=== PATIENT | male | born 1950 | race Caucasian/White ===

== ENCOUNTER 2017-11-30 18:58 | Inpatient (IN) | payer MEDICARE ==
[2017-11-30 19:24] LABS: #Eosinphils 0.1 thou/uL (0.0-0.7); #Lymphocytes 1.9 thou/uL (1.20-3.40); #Monocytes 1.1 thou/uL (0.11-0.59); #Neutrophils 8.6 thou/uL (1.40-6.50); %Basophils 0.1 % (0.0-1.0); %Eosinophils 0.6 % (0.0-10.0); %Monocytes 9.3 % (0.0-10.0); Hemoglobin 12.8 g/dL (14.0-18.0); Mean Corpuscular HGB CONC 33.6 g/dL (32.0-36.0); Mean Corpuscular Hemoglobin 31.6 pg (27.0-31.0); Mean Corpuscular Volume 94.1 fl (80.0-94.0); Mean Platelet Volume 8.3 fL (7.4-10.4); Platelet Count 160 thou/uL (130-400); RBC Distribution Width 12.3 % (11.5-14.5); Red Blood Cell (RBC) Count 4.04 mill/uL (4.70-6.10); White Blood Cell (WBC) Count 11.6 thou/uL (4.8-10.8)
[2017-11-30 19:46] LABS: ALT (SGPT) 19 U/L (8-55); AST (SGOT) 18 U/L (5-34); Albumin 3.8 g/dL (3.4-4.8); Alkaline Phosphatase 87 U/L (40-150); Anion Gap 11 mmol/L (10-20); BUN (Urea Nitrogen) 35 mg/dL (8.4-25.7); Bilirubin, Total 0.4 mg/dL (0.2-1.2); Calc. Creatinine Clearance 0 mL/min (70-130); Calcium 8.5 mg/dL (7.8-10.44); Carbon Dioxide 25 mmol/L (23-31); Chloride 101 mmol/L (98-107); Estimated GFR-MDRD 36; Globulin 3.4 g/dL (2.4-3.5); Glucose 107 mg/dL (80-115); Potassium 3.5 mmol/L (3.5-5.1); Protein, Total 7.2 g/dL (5.8-8.1); Sodium 133 mmol/L (136-145)
[2017-11-30 20:04] LABS: Bilirubin Negative (Negative); Blood, Urine Negative (Negative); Clarity CLEAR (Clear); Glucose, Urine (Dipstick) 100 mg/dL (Negative); Leukocyte Negative (Negative); Nitrite Negative (Negative); Protein, Urine (Dipstick) 100 mg/dL (Neg-Trace); Specific Gravity, Urine 1.018 (1.002-1.036); pH, Urine 5.5 (5.0-9.0)
[2017-11-30 20:05] LABS: Bacteria/HPF None Seen HPF (None Seen); Hyaline Casts/LPF 0-3 HYALINE CAST LPF (0-3 Hyaline); Pathc Cast-AUWi Flag 0.27 (0-2.49); RBC/HPF 0-3 HPF (0-3); Squamous Epithelial None Seen HPF (0-3); WBC/HPF None Seen HPF (0-3)
--- NOTE | 2017-11-30 20:05 | RAD ---
PORTABLE CHEST: 11/30/17 HISTORY: Mental status change. No comparison. Cardiomegaly with postop sternotomy change. Lungs appear clear. No evidence of vascular congestion or infiltrate. No evidence of effusion. IMPRESSION: Mild cardiomegaly. No acute lung process. POS: [facility]
--- NOTE | 2017-11-30 21:21 | CT ---
CT HEAD WITHOUT CONTRAST: 11/30/17 Multiple axial tomograms obtained through the head without IV enhancement. HISTORY: Mental status change. Mild cortical volume loss. No evidence of infarct or mass. No evidence of hemorrhage. Sinuses and mas toids are aerated. IMPRESSION: No acute abnormality. POS: [facility]
[2017-11-30] MEDS ORDERED: Lorazepam 2 MG/ML VIAL ONE (22:10)
[2017-11-30] MEDS ORDERED: Piperacillin/Tazobactam 4.5 GM in Sodium Chloride 0.9% 100 ML IVPB SCH (22:45)
[2017-11-30 23:18] LABS: pH, Arterial 7.39 (7.35-7.45)
[2017-11-30 23:19] LABS: Actual Bicarbonate (HCO3a) 24.6 mEq/L (22-26); Base Excess (BEa) -0.3 mEq/L (0 (+/-) 2.5); CO2 Tension 41.2 mmHg (35.0-45.0); Hematocrit-ABG 32.8 % (42.0-52.0); Hemoglobin (Hb) 10.3 g/dL (14.0-18.0); O2 Tension (PaO2) 59.4 mmHg (80.0-100.0)
[2017-11-30 23:20] LABS: Analyzer IN Cardio ER; Calcium, Ionized 1.1 mmol/L (1.12-1.30); Puncture Site RBA
[2017-12-01 00:08] LABS: Troponin I 0.032 ng/mL (< 0.028)
[2017-12-01 00:13] VITALS: BMI 30.3
[2017-12-01] MEDS ORDERED: Acetaminophen 325 MG TAB PO PRN (00:24)
[2017-12-01] MEDS ORDERED: Nitroglycerin 0.4 MG TAB 1 EACH SL PRN (04:25)
[2017-12-01 05:36] LABS: Troponin I 0.183 ng/mL (< 0.028)
[2017-12-01] MEDS: Piperacillin/Tazobactam 3.375 GM in Sodium Chloride 0.9% 100 ML IVPB SCH ×2 (05:52→12:35)
[2017-12-01] MEDS ORDERED: Piperacillin/Tazobactam 4.5 GM in Sodium Chloride 0.9% 100 ML IVPB SCH (06:00)
[2017-12-01 06:29] LABS: #Eosinphils 0.1 thou/uL (0.0-0.7); #Lymphocytes 1.2 thou/uL (1.20-3.40); #Monocytes 0.8 thou/uL (0.11-0.59); #Neutrophils 5.6 thou/uL (1.40-6.50); %Basophils 0.6 % (0.0-1.0); %Eosinophils 0.7 % (0.0-10.0); %Lymphocytes 15.7 % (21.0-51.0); %Monocytes 10.4 % (0.0-10.0); %Neutrophils 72.6 % (42.0-75.0); Hemoglobin 11.1 g/dL (14.0-18.0); Mean Corpuscular HGB CONC 33.2 g/dL (32.0-36.0); Mean Corpuscular Hemoglobin 31.5 pg (27.0-31.0); Mean Corpuscular Volume 94.9 fl (80.0-94.0); Mean Platelet Volume 8.9 fL (7.4-10.4); Platelet Count 145 thou/uL (130-400); RBC Distribution Width 12.2 % (11.5-14.5); Red Blood Cell (RBC) Count 3.51 mill/uL (4.70-6.10); White Blood Cell (WBC) Count 7.8 thou/uL (4.8-10.8)
[2017-12-01] MEDS: Sodium Chloride 0.9% 1,000 ML IV SCH (06:44)
[2017-12-01 06:53] LABS: ALT (SGPT) 14 U/L (8-55); AST (SGOT) 17 U/L (5-34); Albumin 3.3 g/dL (3.4-4.8); Alkaline Phosphatase 71 U/L (40-150); Anion Gap 12 mmol/L (10-20); BUN (Urea Nitrogen) 33 mg/dL (8.4-25.7); Bilirubin, Total 0.3 mg/dL (0.2-1.2); Calc. Creatinine Clearance 52 mL/min (70-130); Calcium 8.1 mg/dL (7.8-10.44); Carbon Dioxide 26 mmol/L (23-31); Chloride 105 mmol/L (98-107); Estimated GFR-MDRD 36; Globulin 2.9 g/dL (2.4-3.5); Glucose 82 mg/dL (80-115); Potassium 3.4 mmol/L (3.5-5.1); Protein, Total 6.2 g/dL (5.8-8.1); Sodium 140 mmol/L (136-145)
--- NOTE | 2017-12-01 07:34 | HP ---
PRIMARY CARE PHYSICIAN: [facility]. PRESENTING COMPLAINT: Altered mental state. HISTORY OF PRESENT ILLNESS: This is a 67-year-old male with a history of shortness of breath (COPD n ot formally diagnosed), type 2 diabetes mellitus, CAD and PVD, who was brought to the emergency room due to an altered mental state. Family reports that he has had cold and flu-like symptoms for the week and he went to the [facility] yesterday where they state a flu test was not done, but he was given some nausea medication and sent home. Later yesterday, he became more confused, had some diffi culty walking and getting out of bed. This got worse today and so he was brought to the emergency ro om. He has complained of shortness of breath, but there was no associated chest pain. He also had s ome cough, unclear if productive sputum along with fever and nausea as well as vomiting and wheezing. History is limited due to patient's altered mental state. PAST MEDICAL HISTORY: Chronic shortness of breath on inhalers at home p.r.n., diabetes mellitus, CAD , PVD. PAST SURGICAL HISTORY: Appendectomy, CABG, cholecystectomy, surgery on his bilateral carotids and bi lateral great toe amputation. FAMILY HISTORY: Reviewed and noncontributory. SOCIAL HISTORY: Former smoker, quit about 3 years ago. Does not do drugs or drink alcohol. ALLERGIES: AMBIEN. REVIEW OF SYSTEMS: Unable to review due to the patient's altered mental state. PHYSICAL EXAMINATION: VITAL SIGNS: Temperature 98.9, pulse 86, respiration rate 20, oxygen saturation 94% on 2 liters of o xygen by nasal cannula, blood pressure 118/65. GENERAL: Febrile (ear temperature 101.9), tachycardic and tachypneic on arrival at the ER, his oxyge n saturation was 98% on nonrebreather. He is lethargic, responsive to some verbal stimuli, but not o riented to time or place. HEENT: Atraumatic, normocephalic. Not pale, anicteric. PERRLA. Dry mucosa. NECK: Supple, full range of movements. RESPIRATORY: Diffuse rhonchi, occasional wheezing, no crackles. CARDIOVASCULAR: Slight tachycardia with regular rhythm. S1 and S2 only. No murmurs, rubs or gallop s. ABDOMEN: Bowel sounds positive, nontender, nondistended, no organomegaly. MUSCULOSKELETAL: Amputation of two great toes. No other skeletal abnormalities noted. SKIN: Warm, dry, well-perfused. EXTREMITIES: Pulses 1+ bilateral lower extremities. NEUROLOGIC: Unable to cooperate with exam, but patient is oriented to person. PSYCHIATRIC: Oriented to person only. LABORATORY DATA: WBC 11.6, hemoglobin 12.8, platelet count 160. ESR 36. D-dimer 1.41. Blood gas o n 2 liters nasal cannula, pH 7.39, pCO2 of 41, pO2 59. Sodium 133, potassium 3.5, BUN 35, creatinine 1.88, lactic acid 1.7. Troponin ranged between 0.032 and 0.183. IMAGING: Chest x-ray, mild cardiomegaly with no acute lung process. Brain CT, no acute abnormalitie s. ASSESSMENT AND PLAN: 1. Acute encephalopathy. At this point, etiology is unclear. He had upper respiratory symptoms and flu-like symptoms for a few days and had confusion for the past day or so. Blood cultures have been taken and he has been started on broad spectrum antibiotics as a precaution. We will follow up bloo d cultures. If further investigations are negative, he may require an MRI brain and a neurology cons ult. 2. Hypoxia/acute respiratory failure, which I pursue. The patient likely has undiagnosed chronic ob structive pulmonary disease. He might be undergoing mild exacerbation. He has been started on nebul izer therapy. D-dimer is elevated, which could be due to infection or an active pulmonary embolism, so we will pursue a VQ scan. 3. Acute kidney injury, unclear whether this is an chronic kidney disease or pure acute kidney injur y as the patient's baseline renal function is unknown. We will hydrate gently and hold lisinopril an d chlorthalidone. 4. Diabetes mellitus type 2. We will place on sliding scale insulin, hyperglycemia protocol and agustín betic diet if able to tolerate p.o. 5. Coronary artery disease. His troponin is trending up, so we will continue to trend and get Cardi ology input. We will also get EKG p.r.n. as well as a BNP. 6. Elevated troponin, could be due to type 2 non-ST elevation myocardial infarction from demand isch emia, but we will trend and get Cardiology input. 7. Peripheral vascular disease. Continue aspirin. Continue home medications. 8. Hypertension. We will continue atenolol and amlodipine. We will hold lisinopril and chlorthalid one.
[2017-12-01] MEDS ORDERED: Lisinopril 20 MG TAB PO SCH (09:00)
[2017-12-01] MEDS ORDERED: Chlorthalidone 25 MG TAB PO SCH (09:00)
[2017-12-01] MEDS: Ferrous Sulfate 325 MG TAB PO SCH ×3 (10:05→17:40)
[2017-12-01] MEDS: Aspirin 325 MG TAB PO SCH (10:05)
[2017-12-01] MEDS: Atenolol 25 MG TAB PO SCH ×2 (10:06→20:57)
[2017-12-01] MEDS: Amlodipine 10 MG TAB PO SCH (10:06)
[2017-12-01] MEDS: Bupropion 150 MG SR TAB PO SCH ×2 (10:07→17:40)
--- NOTE | 2017-12-01 14:23 | PDOC.PN ---
- Subjective Encounter Start Date: 12/01/17 Encounter Start Time: 13:00 Patient is renetta today, Alert now and oriented. he was very confused and Weak with slurred speech according to . he is more Clear now, c/o cough and congestion. - Objective Resuscitation Status: Resuscitation Status FULL:Full Resuscitation MAR Reviewed: Yes Vital Signs & Weight: Vital Signs (12 hours) Temp Pulse Resp BP BP Pulse Ox 12/01/17 10:06 81 150/66 H 12/01/17 09:53 81 20 90 L 12/01/17 08:00 99.1 F 81 18 150/66 H 92 L 12/01/17 06:18 82 22 H 90 L 12/01/17 05:03 99.0 F 82 16 137/64 99 12/01/17 02:23 85 22 H 86 L Weight Weight 211 lb 4.8 oz I&O: 11/30/17 12/01/17 12/02/17 06:59 06:59 06:59 Intake Total 120 Output Total 700 525 Balance -700 -405 Result Diagrams: 12/01/17 04:58 12/01/17 04:58 Additional Labs: Accuchecks 12/01/17 12:12 POC Glucose 119 H Radiology Reviewed by me: Yes EKG Reviewed by me: Yes Phys Exam - Physical Examination HEENT: PERRLA, moist MMs Neck: no nodes, no JVD Respiratory: no wheezing, no rales Cardiovascular: RRR, no significant murmur Gastrointestinal: soft, non-tender Musculoskeletal: pulses present, edema present Neurological: non-focal, normal sensation Psychiatric: normal affect, A&O x 3 Skin: no rash, normal turgor Dx/Plan (1) NSTEMI (non-ST elevated myocardial infarction) Code(s): I21.4 - NON-ST ELEVATION (NSTEMI) MYOCARDIAL INFARCTION Status: Acute Comment: PT has jump in his trop leevl, no chest pain, Will continue with lovenox and BB, do a Stat Echo to look for Wall motion. Consulted Cardiology. (2) Acute respiratory failure with hypoxia Code(s): J96.01 - ACUTE RESPIRATORY FAILURE WITH HYPOXIA Status: Acute Comment: Persisantly SOB with Hypoxia, Will continue with Neb treatments, V/q scan is pending, need to r/o PE. Pt is on lovenox 1mg/kg BID. Will continue on IV levofloxacin for possible COPD undiagnosed, continue Nebs. (3) Acute encephalopathy Code(s): G93.40 - ENCEPHALOPATHY, UNSPECIFIED Status: Acute Comment: Resolved now. likely TIA or delirium from [place]. (4) TIA (transient ischemic attack) Status: Acute Comment: Waiting on MRI scan, pt has clear signs of Neuro dfeicitis, Will do ischemic work up and Consult neurology if posiitve,. Will continue on Aspirn, Statin. (5) THI (acute kidney injury) Code(s): N17.9 - ACUTE KIDNEY FAILURE, UNSPECIFIED Status: Acute Comment: Mild renal dysfucntion, continue to Monitor, avoid nephro toxic meds. (6) CAD (coronary artery disease) Code(s): I25.10 - ATHSCL HEART DISEASE OF [place] CORONARY ARTERY W/O ANG PCTRS Status: Acute Comment: Continue Aspirin/ BB, Statin. consult Cardiology. - Plan cont current plan of care, plan discussed w/ family, continue antibiotics, PT/OT , speech therapy, respiratory therapy, incentive spirometry, DVT proph w/lovenox * . - Discharge Day Encounter end time: 13:40 Review of Systems - Review of Systems Constitutional: weakness, malaise. negative: fever, chills, sweats, other Eyes: negative: Pain, Vision Change, Conjunctivae Inflammation, Eyelid Inflammation, Redness, Other ENT: negative: Ear Pain, Ear Discharge, Nose Pain, Nose Discharge, Nose Congestion, Mouth Pain, Mouth Swelling, Throat Pain, Throat Swelling, Other Respiratory: Cough, Shortness of Breath, SOB with Excertion. negative: Dry, Hemoptysis, Pleuritic Pain, Sputum, Wheezing Cardiovascular: edema. negative: chest pain, palpitations, orthopnea, paroxysmal nocturnal dyspnea, light headedness, other Gastrointestinal: negative: Nausea, Vomiting, Abdominal Pain, Diarrhea, Constipation, Melena, Hematochezia, Other Genitourinary: negative: Dysuria, Frequency, Incontinence, Hematuria, Retention , Other Musculoskeletal: negative: Neck Pain, Shoulder Pain, Arm Pain, Back Pain, Hand Pain, Leg Pain, Foot Pain, Other - Medications/Allergies Allergies/Adverse Reactions: Allergies Allergy/AdvReac Type Severity Reaction Status Date / Time zolpidem [From Ambien] Allergy Verified 12/01/17 00:20 Medications: Current Medications Amlodipine Besylate (Norvasc) 5 mg PO DAILY [facility] Last Admin: 12/01/17 10:06 Dose: 5 mg Aspirin (Aspirin) 325 mg PO DAILY [facility] Last Admin: 12/01/17 10:05 Dose: 325 mg Atenolol (Tenormin) 50 mg PO BID [facility] Last Admin: 12/01/17 10:06 Dose: 50 mg Atorvastatin Calcium (Lipitor) 40 mg PO [facility] Bupropion HCl (Wellbutrin Sr) 150 mg PO BID-[facility] Last Admin: 12/01/17 10:07 Dose: 150 mg Cholecalciferol (Vitamin D3) 2,000 units PO DAILY [facility] Last Admin: 12/01/17 10:07 Dose: 2,000 units Ferrous Sulfate (Feosol) 325 mg PO TID-[facility] Last Admin: 12/01/17 12:31 Dose: 325 mg Vancomycin HCl 1.75 gm/ Sodium (Chloride) 500 mls @ 250 mls/hr IVPB Q24HR@2100 [facility] Piperacillin Sod/Tazobactam (Sod 3.375 gm/ Sodium Chloride) 100 mls @ 200 mls/ hr IVPB Q6HR [facility] Last Admin: 12/01/17 12:35 Dose: 100 mls Sodium Chloride (Normal Saline 0.9%) 1,000 mls @ 75 mls/hr IV .[id number] [facility] Last Admin: 12/01/17 06:44 Dose: 1,000 mls Influenza Virus Vaccine (Fluzone High-Dose Syr) 0.5 ml IM .ONCE ONE Stop: 12/02/17 09:01 Nitroglycerin (Nitrostat) 0.4 mg SL Q5MIN PRN PRN Reason: Chest Pain Pneumococcal 13-Valent Conj Vacc (Prevnar) 0.5 ml IM .ONCE ONE Stop: 12/02/17 09:01 Sodium Chloride (Flush - Normal Saline) 10 ml IVF Q12HR [facility] Last Admin: 12/01/17 10:08 Dose: Not Given Sodium Chloride (Flush - Normal Saline) 10 ml IVF PRN PRN PRN Reason: Saline Flush
--- NOTE | 2017-12-01 16:28 | NM ---
VQ SCAN: Date: 12/01/17 HISTORY: Hypoxia, elevated D-Dimer. TECHNIQUE: A perfusion only scan was performed following the intravenous administration of 5.6 mCi technetium-99 m MAA. Xenon inhalation was attempted twice, but the patient was unable to follow instructions and wa s unable to take a deep breath both times. FINDINGS: Correlation is made with the chest radiograph of the previous evening. Homogeneous tracer distribution is seen in the lungs bilaterally without pleural based segmental or s ubsegmental defects. IMPRESSION: Normal radionuclide perfusion scan. No evidence of pulmonary embolism. POS: [facility]
[2017-12-01] MEDS ORDERED: Potassium Chloride 20 MEQ TAB PO SCH (17:15)
--- NOTE | 2017-12-01 17:55 | ULT ---
CAROTID DOPPLER: Date: 12/01/17 Ultrasound Doppler study is performed of the extracranial carotid arteries. Color Doppler with spectr al analysis and velocity recordings obtained. HISTORY: Dizziness. Neuro deficits. FINDINGS: Ultrasound images show intimal thickening and scattered echogenic plaque throughout both systems. Velocities are increased in the right internal carotid artery recorded at 131 cm/second systolic. Thi s indicates hemodynamically significant stenosis in the 50-60% range. Velocities in the left internal carotid artery are upper normal and recorded at 112 cm/second. Vertebrals show antegrade flow. IMPRESSION: 1. Moderate echogenic plaque bilaterally. 2. Evidence of hemodynamically significant stenosis in the right internal carotid artery. POS: [facility]
--- NOTE | 2017-12-01 19:50 | CON ---
DATE OF CONSULTATION: 12/01/2017 REASON FOR CONSULTATION: Indeterminate troponin levels in the setting of fever. HISTORY OF PRESENT ILLNESS: Mr. Sage Her is a very pleasant 67-year-old gentleman, who was br ought to the hospital after his found him to be progressively feeling more, more weak and then d isoriented. He had cold and flu-like symptoms for the past week prior to the admission. A flu test was done here, which was negative. He had confusion and disorientation. He is brought to the [facility] for evaluation. PAST MEDICAL HISTORY: 1. Diabetes. 2. Coronary artery disease. 3. Peripheral vascular disease. PAST SURGICAL HISTORY: 1. He said he had bypass surgery x2 in [place] in [place]. He thinks 22 years ago, it sounds like he may have had internal mammary artery grafting as well as one vein graft. 2. Cholecystectomy. 3. 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 4. History of femoral popliteal bypass on the left, he thinks about 2 years ago. 5. History of bilateral carotid arterial surgery. FAMILY HISTORY: Negative for heart disease at a young age. SOCIAL HISTORY: Former smoker, quit about 3 years ago. No drugs or alcohol. ALLERGIES: Allergic to AMBIEN. REVIEW OF SYSTEMS: Constitutional: No significant weight gain or loss. Vision: No changes. Heari ng: No changes. Pulmonary: No cough or wheezing. Gastrointestinal: No nausea, vomiting, or diarr hea. Skin: No rashes. Neurologic: No unilateral weakness or numbness. Psychiatric: No unusual d epression or anxiety. Hematologic: No unusual bruising. Genitourinary: No burning with urination. Vascular: He does have calf claudication bilaterally, especially the right side. MEDICATIONS: At home included: 1. Albuterol. 2. Amlodipine. 3. Aspirin. 4. Atenolol. 5. Atorvastatin. 6. Chlorthalidone. 7. Iron. 8. Insulin 80 units in the morning and 22 units in the evening. 9. Lisinopril. The patient's does indicate that the patient has been taking occasional nitroglycerin to relieve chest pain. Medication here, the patient is on enoxaparin 100 mg twice a day. He is still on atorvastatin, still on amlodipine, and lisinopril dose has been reduced. PHYSICAL EXAMINATION: GENERAL: A pleasant elderly gentleman. VITAL SIGNS: Blood pressure 150/66, pulse 81 and regular. HEENT: Eyes: Sclerae nonicteric. Mouth: Mucous membranes moist. NECK: Supple, no lymphadenopathy. LUNGS: Clear. No wheezing, rales or rhonchi. CARDIAC: Normal S1, normal S2. There is no murmur, rub or gallop. ABDOMEN: Soft, nontender, no hepatosplenomegaly. EXTREMITIES: Warm and dry. No clubbing, cyanosis or edema. VASCULAR: Peripheral pulses palpable, but somewhat diminished right femoral pulse. I do feel poplit eal pulses or pedal pulses on either side. PERTINENT LABORATORY AND X-RAY FINDINGS: His creatinine is 1.88, estimated GFR is 36, and potassium is 3.4. EKG: Sinus rhythm, some mild 0.[address] depression in V4 and V5 on admission that is with a sinus tac hycardia, heart rate of 111. Echocardiogram: Ejection fraction is about 55%, although somewhat technically difficult. ASSESSMENT: 1. Fever and sepsis pattern, although blood cultures are fortunately negative. This seems to be imp roving. 2. Increased troponin level, probably demand ischemia. 3. Underlying coronary artery disease. 4. Stage 3 renal failure. 5. Hypertension. 6. Hypercholesterolemia. 7. Peripheral vascular disease. PLAN: 1. We will go ahead and reduce enoxaparin, it looks like demand ischemia. 2. Continue aspirin and statins. 3. We would like the patient to be able to recover. Ultimately, he will likely need to come back fo r a cardiac catheterization in view of the recent onset of angina with a history of bypass surgery so many years ago. 4. We will give additional potassium tomorrow.
[2017-12-01] MEDS: Atorvastatin Calcium 40 MG TAB PO SCH (20:57)
[2017-12-01] MEDS: Benzonatate 100 MG CAP PO PRN (20:58)
[2017-12-01] MEDS ORDERED: Vancomycin HCl 1.75 GM in Sodium Chloride 0.9% 500 ML IVPB SCH (21:00)
[2017-12-01] MEDS ORDERED: Enoxaparin Sodium 100 MG/ML SYRINGE SC SCH (21:00)
[2017-12-01] MEDS ORDERED: Dextrose 50% Abboject 50 ML SYRINGE IVP PRN (21:10)
[2017-12-01] MEDS ORDERED: Dextrose 5% in Water 1,000 ML IV PRN (21:10)
[2017-12-01] MEDS ORDERED: Insulin Detemir 100 UNITS/ML 35 UNITS in Pre-Filled Syringe 1 EACH SC SCH (21:15)
[2017-12-02] MEDS: Sodium Chloride 0.9% 1,000 ML IV SCH ×3 (00:03→22:14)
[2017-12-02] MEDS: Benzonatate 100 MG CAP PO PRN ×2 (06:24→22:11)
[2017-12-02] MEDS ORDERED: Prevnar 13-Val Conj/PF 0.5 ML SYRINGE IM ONE (09:00)
[2017-12-02] MEDS ORDERED: FLU VACC TS2017-18 (>65YR) 0.5 ML SYRINGE IM ONE (09:00)
[2017-12-02] MEDS ORDERED: Potassium Chloride 20 MEQ TAB PO SCH (09:00)
[2017-12-02] MEDS: Atenolol 25 MG TAB PO SCH ×2 (09:51→20:41)
[2017-12-02] MEDS: Amlodipine 10 MG TAB PO SCH (09:52)
[2017-12-02] MEDS: Ferrous Sulfate 325 MG TAB PO SCH ×3 (09:52→17:08)
[2017-12-02] MEDS: Lisinopril 5 MG TAB PO SCH (09:53)
[2017-12-02] MEDS: Aspirin 325 MG TAB PO SCH (09:54)
[2017-12-02] MEDS: Enoxaparin Sodium 40 MG/0.4 ML SYRINGE SC SCH ×2 (09:55→20:42)
[2017-12-02] MEDS: Bupropion 150 MG SR TAB PO SCH ×2 (11:46→17:08)
--- NOTE | 2017-12-02 12:57 | PDOC.PN ---
- Subjective Encounter Start Date: 12/02/17 Encounter Start Time: 10:15 Patient is seen today, alert and oriented. He feels much better, he has Right internal carotid artery significant stenosis, but had h/o bilateral End arterectomy. Waiitng on MRI. - Objective Resuscitation Status: Resuscitation Status FULL:Full Resuscitation MAR Reviewed: Yes Vital Signs & Weight: Vital Signs (12 hours) Temp Pulse Resp BP BP Pulse Ox 12/02/17 12:05 98.4 F 68 16 150/68 H 94 L 12/02/17 09:53 72 130/62 12/02/17 09:52 72 12/02/17 09:51 72 130/62 12/02/17 08:27 98.7 F 72 18 130/62 95 12/02/17 08:00 98.4 F 68 16 95 12/02/17 05:13 97.9 F 71 20 148/61 H 94 L 12/02/17 04:37 91 L Weight Admit Weight 211 lb 4.8 oz Weight 211 lb 4.8 oz I&O: 12/01/17 12/02/17 12/03/17 06:59 06:59 06:59 Intake Total 2054 Output Total 700 525 Balance -700 1530 Result Diagrams: 12/01/17 04:58 12/01/17 04:58 Additional Labs: Accuchecks 12/02/17 12/02/17 12/01/17 11:06 04:34 19:49 POC Glucose 134 H 110 271 H 12/01/17 17:22 POC Glucose 172 H Radiology Reviewed by me: Yes Phys Exam - Physical Examination HEENT: PERRLA, moist MMs Neck: no nodes, no JVD Respiratory: no wheezing, no rales Cardiovascular: RRR, no significant murmur Gastrointestinal: soft, non-tender Musculoskeletal: no edema, pulses present Neurological: non-focal, normal sensation Lymphatic: no nodes Psychiatric: normal affect, A&O x 3 Dx/Plan (1) NSTEMI (non-ST elevated myocardial infarction) Code(s): I21.4 - NON-ST ELEVATION (NSTEMI) MYOCARDIAL INFARCTION Status: Acute Comment: PT has jump in his trop leevl, no chest pain, Will continue with lovenox and BB, Echo is reviewed by cardiology, Looks ok. plan for cardiac Cath later as outpaitent from Cardiology offoce (2) Acute respiratory failure with hypoxia Code(s): J96.01 - ACUTE RESPIRATORY FAILURE WITH HYPOXIA Status: Acute Comment: Persisantly SOB with Hypoxia, Will continue with Neb treatments, V/q scan cancelled for some reason., need to r/o PE. Pt is on lovenox 1mg/kg BID. Will continue on IV levofloxacin for possible COPD undiagnosed, continue Nebs. will wean him off of oxygen today. (3) Acute encephalopathy Code(s): G93.40 - ENCEPHALOPATHY, UNSPECIFIED Status: Acute Comment: Resolved now. likely TIA or delirium from [place]. (4) TIA (transient ischemic attack) Status: Acute Qualifiers: Transient cerebral ischemia type: multiple and bilateral precerebral artery syndromes Qualified Code(s): G45.2 - Multiple and bilateral precerebral artery syndromes Comment: Waiting on MRI scan, pt has clear signs of Neuro dfeicitis, US carotid showed significant stenosis right internal carotid, H/o Carotid Endarterectomy. (5) THI (acute kidney injury) Code(s): N17.9 - ACUTE KIDNEY FAILURE, UNSPECIFIED Status: Acute Comment: Mild renal dysfucntion, continue to Monitor, avoid nephro toxic meds. (6) CAD (coronary artery disease) Code(s): I25.10 - ATHSCL HEART DISEASE OF [place] CORONARY ARTERY W/O ANG PCTRS Status: Acute Comment: Continue Aspirin/ BB, Statin. consult Cardiology. - Plan cont current plan of care, plan discussed w/ family, PT/OT, oncology social work, respiratory therapy, incentive spirometry, out of bed/ambulate, DVT proph w/ lovenox * . - Discharge Day Encounter end time: 10:45 Review of Systems - Review of Systems Eyes: negative: Pain, Vision Change, Conjunctivae Inflammation, Eyelid Inflammation, Redness, Other ENT: negative: Ear Pain, Ear Discharge, Nose Pain, Nose Discharge, Nose Congestion, Mouth Pain, Mouth Swelling, Throat Pain, Throat Swelling, Other Respiratory: negative: Cough, Dry, Shortness of Breath, Hemoptysis, SOB with Excertion, Pleuritic Pain, Sputum, Wheezing Cardiovascular: negative: chest pain, palpitations, orthopnea, paroxysmal nocturnal dyspnea, edema, light headedness, other Gastrointestinal: negative: Nausea, Vomiting, Abdominal Pain, Diarrhea, Constipation, Melena, Hematochezia, Other Genitourinary: negative: Dysuria, Frequency, Incontinence, Hematuria, Retention , Other Musculoskeletal: negative: Neck Pain, Shoulder Pain, Arm Pain, Back Pain, Hand Pain, Leg Pain, Foot Pain, Other Skin: negative: Rash, Lesions, Al, Bruising, Other - Medications/Allergies Allergies/Adverse Reactions: Allergies Allergy/AdvReac Type Severity Reaction Status Date / Time zolpidem [From Ambien] Allergy Verified 12/01/17 00:20 Medications: Current Medications Amlodipine Besylate (Norvasc) 5 mg PO DAILY [facility] Last Admin: 12/02/17 09:52 Dose: 5 mg Aspirin (Aspirin) 325 mg PO DAILY [facility] Last Admin: 12/02/17 09:54 Dose: 325 mg Atenolol (Tenormin) 50 mg PO BID [facility] Last Admin: 12/02/17 09:51 Dose: 50 mg Atorvastatin Calcium (Lipitor) 40 mg PO HS [facility] Last Admin: 12/01/17 20:57 Dose: 40 mg Benzonatate (Tessalon) 100 mg PO TIDPRN PRN PRN Reason: Cough Last Admin: 12/02/17 06:24 Dose: 100 mg Bupropion HCl (Wellbutrin Sr) 150 mg PO BID-[facility] Last Admin: 12/02/17 11:46 Dose: 150 mg Cholecalciferol (Vitamin D3) 2,000 units PO DAILY [facility] Last Admin: 12/02/17 09:53 Dose: 2,000 units Dextrose/Water (Dextrose 50%) 25 gm IVP PRN PRN PRN Reason: HYPOGLYCEMIA PROTOCOL Enoxaparin Sodium (Lovenox) 40 mg SC 0900,2100 [facility] Last Admin: 12/02/17 09:55 Dose: 40 mg Ferrous Sulfate (Feosol) 325 mg PO TID-[facility] Last Admin: 12/02/17 11:45 Dose: 325 mg Glucagon (Glucagon) 1 mg IM PRN PRN PRN Reason: HYPOGLYCEMIA PROTOCOL Sodium Chloride (Normal Saline 0.9%) 1,000 mls @ 75 mls/hr IV .[id number] [facility] Last Admin: 12/02/17 00:03 Dose: 1,000 mls Levofloxacin 500 mg/ Device 100 mls @ 100 mls/hr IVPB 1600 [facility] Last Admin: 12/01/17 15:22 Dose: 100 mls Dextrose/Water (D5w) 1,000 mls @ 0 mls/hr IV INF PRN; As Directed PRN Reason: HYPOGLYCEMIA PROTOCOL Insulin Human Regular (Humulin R) 0 units SC .MILD SLIDING PRN; Protocol PRN Reason: MILD SLIDING SCALE Lisinopril (Zestril) 5 mg PO DAILY [facility] Last Admin: 12/02/17 09:53 Dose: 5 mg Nitroglycerin (Nitrostat) 0.4 mg SL Q5MIN PRN PRN Reason: Chest Pain Sodium Chloride (Flush - Normal Saline) 10 ml IVF Q12HR [facility] Last Admin: 12/02/17 09:56 Dose: Not Given Sodium Chloride (Flush - Normal Saline) 10 ml IVF PRN PRN PRN Reason: Saline Flush
[2017-12-02 14:06] LABS: Cardiac Risk 4.9 (Less than 4.5)
--- NOTE | 2017-12-02 15:08 | MRI ---
MRI BRAIN WITHOUT CONTRAST: Date: 12/02/17 HISTORY: Mental status change. COMPARISON: CT brain dated 11/30/17. FINDINGS: There is no acute territorial infarct or hemorrhage. On the diffusion-weighted imaging sequence, ther e are no abnormal areas of diffusion restriction. This is confirmed on the ADC map. On the susceptibility weighted imaging sequence, there is a single focal abnormal area of signal with in the left temporal white matter which may be from an old infarction or old hemorrhage. [place] have normal flow-voids. Mild mucosal thickening of the ethmoids and the fluids i n the right maxillary sinus. There is moderate atrophy. Moderate microvascular ischemic changes. Gliosis of the right post central gyrus. IMPRESSION: 1. No acute infarct or hemorrhage. 2. Extensive microvascular ischemic changes and moderate atrophy. 3. Mild mucosal sinus disease. POS: [facility]
[2017-12-02] MEDS: Insulin Regular 300 UNITS/3 ML VIAL SC PRN (17:06)
[2017-12-02] MEDS: Atorvastatin Calcium 40 MG TAB PO SCH (20:41)
[2017-12-03] MEDS: Sodium Chloride 0.9% 1,000 ML IV SCH (05:07)
[2017-12-03] MEDS: Insulin Regular 300 UNITS/3 ML VIAL SC PRN ×4 (05:08→20:13)
[2017-12-03] MEDS: Aspirin 325 MG TAB PO SCH (08:33)
[2017-12-03] MEDS: Ferrous Sulfate 325 MG TAB PO SCH ×3 (08:33→17:53)
[2017-12-03] MEDS: Bupropion 150 MG SR TAB PO SCH ×2 (08:34→17:53)
[2017-12-03] MEDS: Amlodipine 10 MG TAB PO SCH (08:34)
[2017-12-03] MEDS: Atenolol 25 MG TAB PO SCH ×2 (08:34→20:13)
[2017-12-03] MEDS: Lisinopril 5 MG TAB PO SCH (08:37)
[2017-12-03] MEDS: Enoxaparin Sodium 40 MG/0.4 ML SYRINGE SC SCH ×2 (08:38→20:12)
[2017-12-03] MEDS: Diabetic Tussin 200 MG/10 ML UDCUP PO PRN ×3 (12:16→21:50)
--- NOTE | 2017-12-03 14:23 | PDOC.PN ---
- Subjective Encounter Start Date: 12/03/17 Encounter Start Time: 14:23 Subjective: nsg notes rev, rosey ovn, no new c/o @ bedside -: no active SOB while at rest, no O2 use at home - Objective Resuscitation Status: Resuscitation Status FULL:Full Resuscitation Vital Signs & Weight: Vital Signs (12 hours) Temp Pulse Resp BP BP Pulse Ox 12/03/17 08:37 73 137/61 12/03/17 08:34 73 137/61 12/03/17 08:00 99.0 F 73 18 12/03/17 07:54 99.0 F 73 18 137/61 92 L Weight Admit Weight 211 lb 4.8 oz Weight 211 lb 4.8 oz I&O: 12/02/17 12/03/17 12/04/17 06:59 06:59 06:59 Intake Total 2055 Output Total 525 Balance 1530 Result Diagrams: 12/03/17 14:33 12/03/17 14:33 Additional Labs: Accuchecks 12/03/17 12/03/17 12/02/17 11:15 05:02 20:04 POC Glucose 227 H 171 H 306 H 12/02/17 16:47 POC Glucose 191 H Phys Exam - Physical Examination Constitutional: NAD HEENT: PERRLA, sclera anicteric slightly dry mm Respiratory: no wheezing, no rales, no rhonchi, clear to auscultation bilateral diminished throughout Cardiovascular: RRR, no significant murmur, no rub Gastrointestinal: soft, positive bowel sounds Musculoskeletal: no edema, pulses present Neurological: moves all 4 limbs Psychiatric: normal affect Dx/Plan (1) Acute encephalopathy Code(s): G93.40 - ENCEPHALOPATHY, UNSPECIFIED Status: Acute Comment: Resolved now. likely TIA or delirium from [place]. (2) Acute respiratory failure with hypoxia Code(s): J96.01 - ACUTE RESPIRATORY FAILURE WITH HYPOXIA Status: Acute Comment: Persisantly SOB with Hypoxia, Will continue with Neb treatments, V/q scan neg PE - dec lovenox to dvt ppx dosing. Will continue on IV levofloxacin for possible COPD undiagnosed, continue Nebs. continue weaning off oxygen - Plan * concern for possible COPD exac/ bronchitis * elevated troponin, demand ischemia * R IC Review of Systems - Medications/Allergies Allergies/Adverse Reactions: Allergies Allergy/AdvReac Type Severity Reaction Status Date / Time zolpidem [From Ambien] Allergy Verified 12/01/17 00:20 Medications: Current Medications Amlodipine Besylate (Norvasc) 5 mg PO DAILY [facility] Last Admin: 12/03/17 08:34 Dose: 5 mg Aspirin (Aspirin) 325 mg PO DAILY [facility] Last Admin: 12/03/17 08:33 Dose: 325 mg Atenolol (Tenormin) 50 mg PO BID [facility] Last Admin: 12/03/17 08:34 Dose: 50 mg Atorvastatin Calcium (Lipitor) 40 mg PO [facility] Last Admin: 12/02/17 20:41 Dose: 40 mg Benzonatate (Tessalon) 100 mg PO TIDPRN PRN PRN Reason: Cough Last Admin: 12/02/17 22:11 Dose: 100 mg [facility]upropion [facility] ([facility] Sr) [facility] Last Admin: 12/03/17 08:34 Dose: 150 mg Cholecalciferol (Vitamin D3) 2,000 units PO DAILY [facility] Last Admin: 12/03/17 08:37 Dose: 2,000 units Dextrose/Water (Dextrose 50%) 25 gm IVP PRN PRN PRN Reason: HYPOGLYCEMIA PROTOCOL Enoxaparin Sodium (Lovenox) 40 mg SC 0900,2100 [facility] Last Admin: 12/03/17 08:38 Dose: 40 mg Ferrous Sulfate (Feosol) 325 mg PO TID[facility] Last Admin: 12/03/17 12:16 Dose: 325 mg Glucagon (Glucagon) 1 mg IM PRN PRN PRN Reason: HYPOGLYCEMIA PROTOCOL Guaifenesin (Robitussin Sf) 200 mg PO Q4H PRN PRN Reason: Cough Last Admin: 12/03/17 12:16 Dose: 200 mg Sodium Chloride (Normal Saline 0.9%) 1,000 mls @ 75 mls/hr IV .[id number] [facility] Last Admin: 12/03/17 05:07 Dose: 1,000 mls Dextrose/Water (D5w) 1,000 mls @ 0 mls/hr IV INF PRN; As Directed PRN Reason: HYPOGLYCEMIA PROTOCOL Insulin Human Regular (Humulin R) 0 units SC .MILD SLIDING PRN; Protocol PRN Reason: MILD SLIDING SCALE Last Admin: 12/03/17 12:16 Dose: 3 unit Levofloxacin (Levaquin) 500 mg PO 0600 [facility] Lisinopril (Zestril) 5 mg PO DAILY [facility] Last Admin: 12/03/17 08:37 Dose: 5 mg Nitroglycerin (Nitrostat) 0.4 mg SL Q5MIN PRN PRN Reason: Chest Pain Sodium Chloride (Flush - Normal Saline) 10 ml IVF Q12HR [facility] Last Admin: 12/03/17 08:38 Dose: 10 ml Sodium Chloride (Flush - Normal Saline) 10 ml IVF PRN PRN PRN Reason: Saline Flush
[2017-12-03 14:47] LABS: #Basophils 0.1 thou/uL (0.0-0.2); #Eosinphils 0.2 thou/uL (0.0-0.7); #Lymphocytes 1.4 thou/uL (1.20-3.40); #Monocytes 0.7 thou/uL (0.11-0.59); #Neutrophils 4.7 thou/uL (1.40-6.50); %Basophils 0.9 % (0.0-1.0); %Eosinophils 3.1 % (0.0-10.0); %Lymphocytes 19.8 % (21.0-51.0); %Monocytes 10.1 % (0.0-10.0); %Neutrophils 66.1 % (42.0-75.0); Hemoglobin 11.3 g/dL (14.0-18.0); Mean Corpuscular Hemoglobin 30.9 pg (27.0-31.0); Mean Corpuscular Volume 93.5 fl (80.0-94.0); Mean Platelet Volume 8.1 fL (7.4-10.4); Platelet Count 165 thou/uL (130-400); RBC Distribution Width 12.1 % (11.5-14.5); Red Blood Cell (RBC) Count 3.65 mill/uL (4.70-6.10); White Blood Cell (WBC) Count 7.1 thou/uL (4.8-10.8)
[2017-12-03 15:16] LABS: Anion Gap 12 mmol/L (10-20); BUN (Urea Nitrogen) 20 mg/dL (8.4-25.7); Calc. Creatinine Clearance 64 mL/min (70-130); Calcium 8.5 mg/dL (7.8-10.44); Carbon Dioxide 25 mmol/L (23-31); Chloride 103 mmol/L (98-107); Estimated GFR-MDRD 46; Glucose 311 mg/dL (80-115); Potassium 4.1 mmol/L (3.5-5.1); Sodium 136 mmol/L (136-145)
[2017-12-03] MEDS: Atorvastatin Calcium 40 MG TAB PO SCH (20:13)
[2017-12-04 09:04] VITALS: BP 142/68; TEMP 98.5
[2017-12-04] MEDS: Amlodipine 10 MG TAB PO SCH (10:02)
[2017-12-04] MEDS: Aspirin 325 MG TAB PO SCH (10:04)
[2017-12-04] MEDS: Lisinopril 5 MG TAB PO SCH (10:05)
[2017-12-04] MEDS: Ferrous Sulfate 325 MG TAB PO SCH ×2 (10:05→12:37)
[2017-12-04] MEDS: Atenolol 25 MG TAB PO SCH (10:06)
[2017-12-04] MEDS: Bupropion 150 MG SR TAB PO SCH (10:07)
[2017-12-04] MEDS: Enoxaparin Sodium 40 MG/0.4 ML SYRINGE SC SCH (10:07)
--- NOTE | 2017-12-05 11:12 | DIS ---
DISCHARGE DIAGNOSES: 1. Acute encephalopathy, resolved. 2. Elevated troponin consistent with demand ischemia. 3. Acute respiratory failure with hypoxia, resolved. 4. Bronchitis. 5. Question of transient ischemic attack, unable to rule out. BRIEF SUMMARY OF HOSPITAL COURSE: This is a 67-year-old male who initially presented with a chief co mplaint of shortness of breath and altered mental status. Please see the original history and physic al for full details surrounding his admission. The patient presented with acute encephalopathy and was noted to be hypoxic, tachypneic, and tachycar dic. He also had concomitant elevated troponins, which in retrospect are consistent with demand isch emia. Cardiology was consulted during this hospitalization and at the time of discharge, the patient will need to follow up closely with outpatient Cardiology. In terms of the patient's acute respirat ory failure with hypoxia, it is felt that the hypoxia likely contributed to a component of acute meta bolic encephalopathy. The encephalopathy itself is currently resolved. Etiologies for hypoxia is li joe bronchitis at this point in time and the patient is continued on oral levofloxacin, and DuoNebs. He has been weaned down. We will continue weaning off oxygen as tolerated. On admission, given th e patient's presentation, there was concern for pulmonary embolus and the patient was actually empiri kvng started on full anticoagulation dosing of Lovenox. Subsequent V/Q scan was negative for pulmon blanco embolus. At the time of discharge, the patient is not placed on any anticoagulation and pulmonar y embolus has been ruled out. Remainder of the patient's chronic issues have been stable during this hospitalization. CONSULTATIONS: 1. Cardiology. 2. Case management. MEDICATION RECONCILIATION: Please see the EMR for full details. Of note, the patient will continue on levofloxacin 500 mg p.o. to complete an oral course on an outpatient basis. The patient has also been placed on aspirin 325 mg. DISCHARGE INSTRUCTIONS: The patient has been asked to follow up closely with his primary care team i ncluding his primary care provider, outpatient Cardiology, and outpatient Nephrology. The patient an d his family are able to complete teach-back in regard to the discharge instructions PATIENT'S CONDITION AT DISCHARGE: VITAL SIGNS: At the time discharge, the patient's vital signs are stable. CONSTITUTIONAL: The patient is awake, alert, in no acute distress. HEENT: Slightly dry mucous membranes. Anicteric sclerae. Normocephalic, atraumatic. RESPIRATORY: No overt wheezing, rales, or rhonchi, but it is diminished throughout with marginal air movement. CARDIOVASCULAR: S1, S2. Pulses 2+ bilateral upper extremities. GASTROINTESTINAL: Soft, positive bowel sounds, nontender to palpation. MUSCULOSKELETAL: Moving all 4 extremities. SIGNIFICANT LABORATORY DATA AND IMAGING: During this hospitalization on 12/03/2017, WBC 7.1, hemoglo bin 11.3, hematocrit 34.1, platelets 165. Sodium 136, potassium 4.1, chloride 103, bicarbonate 25, c reatinine 1.53, BUN 20, glucose 193, calcium 8.5. On 12/02/2017, brain MRI. Impression, "no acute infarct or hemorrhage. Extensive microvascular isch emic changes and moderate atrophy. Mild mucosal sinus disease." On 12/01/2017, carotid Doppler study. Impression, "moderate echogenic plaques bilaterally. Evidence of hemodynamically significant stenosis in the right internal carotid artery" and accepted from the actual findings demonstrate "velocities are increased in the right internal carotid artery, reported at 131 cm per second systolic. This indicates hemodynamically significant stenosis in the 50% to 60% range." On 12/01/2017, pulmonary perfusion imaging. Impression, "normal radionuclide perfusion scan. No jori dence of pulmonary embolism." Thank you for asking me to care for your patient. Questions or concerns, contact me at [facility].
== END 2017-12-04 14:00 | disposition home or self-care (01) | DRG 189 ==
LOC: ERS 18:58 → T4-A 23:49
PROVIDERS: ADMIT Internal Medicine; ATTEND Internal Medicine
PROC: 009U3ZX Drainage of Spinal Canal, Percutaneous Approach, Diagnostic (ICD-10-PCS; principal; 2017-11-30)
DX: J96.01 Acute respiratory failure with hypoxia (principal); G93.41 Metabolic encephalopathy; N17.9 Acute kidney failure, unspecified; I24.8 Other forms of acute ischemic heart disease; G45.9 Transient cerebral ischemic attack, unspecified; J40 Bronchitis, not specified as acute or chronic; E11.42 Type 2 diabetes mellitus with diabetic polyneuropathy; I25.10 Atherosclerotic heart disease of native coronary artery without angina pectoris; Z95.1 Presence of aortocoronary bypass graft; Z89.412 Acquired absence of left great toe; Z89.411 Acquired absence of right great toe; Z87.891 Personal history of nicotine dependence; Z88.8 Allergy status to other drugs, medicaments and biological substances; Z79.51 Long term (current) use of inhaled steroids; Z79.82 Long term (current) use of aspirin; Z79.4 Long term (current) use of insulin; I12.9 Hypertensive chronic kidney disease with stage 1 through stage 4 chronic kidney disease, or unspecified chronic kidney disease; E11.22 Type 2 diabetes mellitus with diabetic chronic kidney disease; N18.3 Chronic kidney disease, stage 3 (moderate); E78.00 Pure hypercholesterolemia, unspecified; I65.21 Occlusion and stenosis of right carotid artery; E78.5 Hyperlipidemia, unspecified; F32.9 Major depressive disorder, single episode, unspecified
CPT/HCPCS: 36415; 36416; 62270; 70450; 70551; 71045; 78582; 80048; 80053; 80061; 81003; 81015; 82140; 82805; 83605; 83880; 84484; 85025; 85379; 85652; 86140; 87040; 87086; 90471; 90682; 93005; 93306; 93880; 94640; 96361; 96365; 96375; A4216; A9540; A9558; G0008; J1650; J1815; J1956; J2060; J2543; J3370; J7050; J7620; Q2036

== ENCOUNTER 2019-09-11 19:34 | Emergency (ER) | payer MEDICARE ==
[2019-09-11 20:15] LABS: #Basophils 0.1 thou/uL (0.0-0.2); #Eosinphils 0.3 thou/uL (0.0-0.7); #Lymphocytes 1.8 thou/uL (1.20-3.40); #Monocytes 0.9 thou/uL (0.11-0.59); #Neutrophils 6.6 thou/uL (1.40-6.50); %Basophils 0.6 % (0.0-1.0); %Eosinophils 3.4 % (0.0-10.0); %Lymphocytes 18.4 % (21.0-51.0); %Monocytes 8.9 % (0.0-10.0); %Neutrophils 68.8 % (42.0-75.0); Hemoglobin 12.6 g/dL (14.0-18.0); Mean Corpuscular HGB CONC 33.5 g/dL (32.0-36.0); Mean Corpuscular Hemoglobin 30.4 pg (27.0-31.0); Mean Corpuscular Volume 90.6 fL (78.0-98.0); Mean Platelet Volume 8.7 fL (7.4-10.4); Platelet Count 205 thou/uL (130-400); RBC Distribution Width 12.6 % (11.5-14.5); Red Blood Cell (RBC) Count 4.14 mill/uL (4.70-6.10); White Blood Cell (WBC) Count 9.5 thou/uL (4.8-10.8)
[2019-09-11 20:41] LABS: ALT (SGPT) 13 U/L (8-55); AST (SGOT) 13 U/L (5-34); Albumin 3.9 g/dL (3.4-4.8); Alkaline Phosphatase 86 U/L (40-110); Anion Gap 13 mmol/L (10-20); BUN (Urea Nitrogen) 24 mg/dL (8.4-25.7); Bilirubin, Total 0.2 mg/dL (0.2-1.2); Calc. Creatinine Clearance 0 mL/min (70-130); Carbon Dioxide 23 mmol/L (23-31); Chloride 108 mmol/L (98-107); Estimated GFR-MDRD 36; Glucose 214 mg/dL (80-115); Potassium 4.8 mmol/L (3.5-5.1); Protein, Total 6.9 g/dL (5.8-8.1); Sodium 139 mmol/L (136-145)
[2019-09-11] MEDS ORDERED: Fentanyl 100 MCG/2 ML VIAL ONE (20:45)
--- NOTE | 2019-09-11 20:45 | RAD ---
Left elbow 2 views HISTORY: Fall. Left arm injury. FINDINGS: Disassociation at the elbow joint with posterior displacement of the radius and ulna in rel ation to the distal humerus. No fracture fragments are apparent. IMPRESSION: Left elbow dislocation.
--- NOTE | 2019-09-11 20:46 | RAD ---
Left forearm 2 views HISTORY: Arm injury. FINDINGS: Radius and ulna are intact. Posterior dislocation of the elbow is again demonstrated. Calcification over the arterial structures. Metallic BB projects over the fingers. IMPRESSION: Left elbow dislocation.
--- NOTE | 2019-09-11 20:50 | RAD ---
Left hand 3 views HISTORY: Left hand injury. FINDINGS: Joint space narrowing and osteophytosis most pronounced at the distal interphalangeal joint s. No acute fracture, dislocation, or aggressive osseous erosions evident. Rounded metallic BB projects over the palmar soft tissues just volar to the space between the second and third metacarpal s. IMPRESSION: Osteoarthritic changes left hand. Metallic foreign body of the palmar soft tissues.
[2019-09-11 21:02] LABS: CKMB 3.6 ng/mL (0-6.6)
[2019-09-11] MEDS ORDERED: Ketamine 50 MG/ML (10ML VIAL) ONE (21:19)
--- NOTE | 2019-09-11 22:12 | RAD ---
Left elbow 2 views HISTORY: Dislocation. Elbow injury. COMPARISON: Earlier exam on the same date. FINDINGS: Ulnar and radius now align normally with the distal humerus. Subtle cortical irregularity p rojects just lateral to the radiocapitellar joint. Possible fracture fragment. Please consider short-term radiographic 4 view exam.
[2019-09-11] MEDS ORDERED: Ketorolac Tromethamine 30 MG/ML VIAL ONE (23:23)
[2019-09-11] MEDS ORDERED: traMADol HCl 50 MG TAB ONE (23:23)
[2019-09-11 23:42] LABS: Troponin I 0.057 ng/mL (< 0.028)
== END 2019-09-12 00:31 | disposition home or self-care (01) ==
LOC: ERS 19:34
DX: S53.105A Unspecified dislocation of left ulnohumeral joint, initial encounter (principal); I10 Essential (primary) hypertension; E78.5 Hyperlipidemia, unspecified; E11.40 Type 2 diabetes mellitus with diabetic neuropathy, unspecified; F32.9 Major depressive disorder, single episode, unspecified; Z79.899 Other long term (current) drug therapy; W18.30XA Fall on same level, unspecified, initial encounter
CPT/HCPCS: 24600; 36415; 80053; 82553; 84484; 85025; 93005; 96374; 96375; J1885; J3010

== ENCOUNTER 2019-09-15 11:03 | Emergency (ER) | payer MEDICARE, OTHER ==
[2019-09-15 12:54] LABS: #Eosinphils 0.1 thou/uL (0.0-0.7); #Lymphocytes 1.7 thou/uL (1.20-3.40); #Monocytes 1.2 thou/uL (0.11-0.59); #Neutrophils 7.5 thou/uL (1.40-6.50); %Basophils 0.3 % (0.0-1.0); %Eosinophils 0.8 % (0.0-10.0); %Lymphocytes 15.8 % (21.0-51.0); %Monocytes 11.2 % (0.0-10.0); %Neutrophils 71.8 % (42.0-75.0); Hemoglobin 11.7 g/dL (14.0-18.0); Mean Corpuscular HGB CONC 33.3 g/dL (32.0-36.0); Mean Corpuscular Hemoglobin 30.5 pg (27.0-31.0); Mean Corpuscular Volume 91.8 fL (78.0-98.0); Mean Platelet Volume 8.7 fL (7.4-10.4); Platelet Count 235 thou/uL (130-400); RBC Distribution Width 12.7 % (11.5-14.5); Red Blood Cell (RBC) Count 3.83 mill/uL (4.70-6.10); White Blood Cell (WBC) Count 10.4 thou/uL (4.8-10.8)
[2019-09-15 13:19] LABS: ALT (SGPT) 22 U/L (8-55); AST (SGOT) 20 U/L (5-34); Albumin 3.7 g/dL (3.4-4.8); Alkaline Phosphatase 104 U/L (40-110); Anion Gap 14 mmol/L (10-20); BUN (Urea Nitrogen) 29 mg/dL (8.4-25.7); Bilirubin, Total 0.6 mg/dL (0.2-1.2); CK (CPK) 254 U/L (30-200); Calc. Creatinine Clearance 0 mL/min (70-130); Calcium 8.7 mg/dL (7.8-10.44); Carbon Dioxide 22 mmol/L (23-31); Chloride 103 mmol/L (98-107); Estimated GFR-MDRD 36; Glucose 155 mg/dL (80-115); Lipase 8 U/L (8-78); Protein, Total 6.7 g/dL (5.8-8.1); Sodium 134 mmol/L (136-145)
[2019-09-15 13:40] LABS: CKMB 1.6 ng/mL (0-6.6)
--- NOTE | 2019-09-15 14:17 | RAD ---
SINGLE VIEW CHEST: HISTORY: Generalized weakness and dizziness since fall on Saturday. COMPARISON: 11/30/2017 FINDINGS: Single view of the chest shows an enlarged but stable cardiomediastinal silhouette. The patient is st atus post CABG. There is no evidence of consolidation, mass or pleural effusion. IMPRESSION: No evidence of acute cardiopulmonary disease. POS: OFF
--- NOTE | 2019-09-15 14:33 | CT ---
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 No evidence of acute infarct, hemorrhage, midline shift or abnormal extra-axial fluid collections is seen. The ventricular size is appropriate and the basilar cisterns are patent. The bony calvarium is intact. The visualized paranasal sinuses and mastoid air cells are well aerated. IMPRESSION: No CT evidence of acute intracranial process.
[2019-09-15 16:18] LABS: Troponin I 0.052 ng/mL (< 0.028)
== END 2019-09-15 17:00 | disposition home or self-care (01) ==
LOC: ERS 11:03
DX: R53.1 Weakness (principal); I10 Essential (primary) hypertension; E78.5 Hyperlipidemia, unspecified; E11.9 Type 2 diabetes mellitus without complications; F32.9 Major depressive disorder, single episode, unspecified; Z79.4 Long term (current) use of insulin; Z79.899 Other long term (current) drug therapy; Z87.891 Personal history of nicotine dependence
CPT/HCPCS: 36415; 70450; 71045; 80053; 82550; 82553; 83690; 84484; 85025; 93005; 94760

== ENCOUNTER 2020-09-21 10:32 | Emergency (ER) | payer MEDICARE, OTHER ==
[2020-09-21 11:30] LABS: #Lymphocytes 1.2 thou/uL (1.20-3.40); #Monocytes 0.6 thou/uL (0.11-0.59); #Neutrophils 3.7 thou/uL (1.40-6.50); %Basophils 0.5 % (0.0-1.0); %Eosinophils 0.3 % (0.0-10.0); %Lymphocytes 21.5 % (21.0-51.0); %Monocytes 10.8 % (0.0-10.0); %Neutrophils 66.9 % (42.0-75.0); Hemoglobin 11.7 g/dL (14.0-18.0); Mean Corpuscular HGB CONC 34.9 g/dL (32.0-36.0); Mean Corpuscular Hemoglobin 32.4 pg (27.0-31.0); Mean Corpuscular Volume 92.8 fL (78.0-98.0); Mean Platelet Volume 9.2 fL (7.4-10.4); Platelet Count 133 thou/uL (130-400); RBC Distribution Width 13.1 % (11.5-14.5); Red Blood Cell (RBC) Count 3.62 mill/uL (4.70-6.10); White Blood Cell (WBC) Count 5.5 thou/uL (4.8-10.8)
--- NOTE | 2020-09-21 11:38 | RAD ---
PORTABLE CHEST: Date: 09/21/2020 INDICATION: Dyspnea. COMPARISON: 09/15/2019. FINDINGS: Heart size mildly prominent, but stable. Postop sternotomy change. No evidence of vascular congestion or effusion. No focal infiltrate. Mild interstitial prominence is stable. IMPRESSION: No acute process or significant interval change. POS: AGW
[2020-09-21 11:51] LABS: ALT (SGPT) 16 U/L (8-55); AST (SGOT) 30 U/L (5-34); Albumin 3.5 g/dL (3.4-4.8); Alkaline Phosphatase 67 U/L (40-110); Anion Gap 14 mmol/L (10-20); BUN (Urea Nitrogen) 33 mg/dL (8.4-25.7); Bilirubin, Total 0.3 mg/dL (0.2-1.2); Calc. Creatinine Clearance 0 mL/min (70-130); Carbon Dioxide 23 mmol/L (23-31); Chloride 102 mmol/L (98-107); Glucose 183 mg/dL (80-115); Potassium 4.9 mmol/L (3.5-5.1); Protein, Total 6.5 g/dL (5.8-8.1); Sodium 134 mmol/L (136-145)
[2020-09-21 12:19] LABS: CKMB 3.3 ng/mL (0-6.6)
[2020-09-21] MEDS ORDERED: Aspirin Chewable 81 MG TAB ONE (12:40)
[2020-09-21] MEDS ORDERED: Enoxaparin Sodium 100 MG/ML SYRINGE ONE (13:09)
[2020-09-21 14:29] LABS: SARS-CoV-2 NAA Rapid Test DETECTED (NotDetected)
[2020-09-21 14:35] LABS: Critical Call Chem Troponin I RESULT DECREASING; Troponin I 3.351 ng/mL (< 0.028)
--- NOTE | 2020-09-24 15:40 | EKG ---
Test Reason : Blood Pressure : / mmHG Vent. Rate : 096 BPM Atrial Rate : 096 BPM P-R Int : 162 ms QRS Dur : 096 ms QT Int : 352 ms P-R-T Axes : 053 110 -10 degrees QTc Int : 444 ms Normal sinus rhythm Left posterior fascicular block Abnormal ECG New T wave inversion V5,V6 compared to 09/15/2019 Confirmed by ELISEO LOPEZ DO ([id number]), photographic editor BRIAN CRUZ ([id number]) on 09/24/2020 3:40:11 PM Referred By: Confirmed By:ELISEO LOPEZ DO
== END 2020-09-21 18:42 | disposition short-term general hospital (02) ==
LOC: ERS 10:32
DX: U07.1 COVID-19 (principal); I21.4 Non-ST elevation (NSTEMI) myocardial infarction; I10 Essential (primary) hypertension; E78.5 Hyperlipidemia, unspecified; E11.40 Type 2 diabetes mellitus with diabetic neuropathy, unspecified; Z87.442 Personal history of urinary calculi; Z87.891 Personal history of nicotine dependence; Z79.899 Other long term (current) drug therapy; Z79.4 Long term (current) use of insulin
CPT/HCPCS: 0240U; 36415; 71045; 80053; 82553; 84484; 85025; 93005; 96372; J1650